=== PATIENT | female | born 1970 | race Caucasian/White ===

== ENCOUNTER 2016-08-24 11:53 | Emergency (ER) | payer OTHER | END 2016-08-24 12:00 | disposition home or self-care (01) | LOC: ER 11:53 | DX: S42.202A Unspecified fracture of upper end of left humerus, initial encounter for closed fracture (principal); W01.0XXA Fall on same level from slipping, tripping and stumbling without subsequent striking against object, initial encounter | CPT/HCPCS: 73030-LT; 73060-LT; 99283; A9270-GY ==